=== PATIENT | female | born 1975 | race Two or more races ===

== ENCOUNTER 2024-08-30 22:04 | Emergency (ER) | payer MEDICAID, SELFPAY ==
[2024-08-30 22:21] VITALS: BP 123/83; PULSE 97; RESP 20; TEMP 37; O2SAT 98
--- NOTE | 2024-08-30 22:28 | PD.EDNV ---
Nausea/Vomit./Diarrhea-RME/HPI General Chief complaint: Nausea/Vomiting/Diarrhea Stated complaint: NAUSEA AND DIARRHEA Time Seen by Provider: 08/30/24 22:27 Arrival date/time: 08/30/24 22:04 RME / HPI RME / HPI Narrative: This section includes all my notes and documentations, including HPI, PE, and ED course. Ramesh Morales MD HPI: 49 y/o female with Hx of Type II DM presents with vomiting and diarrhea x approximately 12 hours. Patient also endorses loss of appetite. Denies any fever and abdominal pain. No other complaints. ROS: All negative except as documented in HPI. Physical Exam: General: Alert and oriented. Appearance of malaise noted. Eyes: Conjunctivae and lids clear. ENT: No nasal congestion. Neck: Supple. Heart: RRR. Lungs: No respiratory distress. Good air movement. No rhonchi, wheezing, rales. Abdomen: Soft and nontender. Normal bowel sounds. No distension. No rebound or guarding. Back: No CVA tenderness. Skin: Warm and dry. Neuro: Alert and oriented X 3. I reviewed all diagnostic test results: My review of the Abdomen/Pelvis CT report is: Enteritis. Blood tests unremarkable. UTI showed positive leukocyte esterase and 7 RBC and 25 WBC and 2 epithelial cells. Covid/Influenza: Negative. At this point, diagnoses include: UTI, Gastroenteritis. Treatment here included: IVF, Zofran 4 mg, Rocephin 1 G. Significant improvement noted. Recommended outpatient care. Based on my best medical judgment, made decision no further evaluation or treatment indicated at this time. Patient understands and agrees to the discharge instructions customized and printed, see below. Discharge Instructions from Dr. Morales: 1. After evaluation, you have stomach flu.? See attached handout on gastroenteritis. 2. This is caused by virus germs.? And we do not have good medications to kill the virus germs.? But your immune system will fight it off. 3. Your job is to stay hydrated.? Zofran for nausea/vomiting.? Increase oral fluid and maintain clear urine.? If dark or yellow, increase oral fluid. 4. Do not take any medications to stop your diarrhea.? But try to replenish the fluid and electrolytes you are losing. 5. Some good choices are water (but not only water because it will cause electrolyte abnormalities), sports drinks like Gatorade (with less sugar content), coconut water, chicken stock, and other fluid with electrolytes (like Pedialyte). 6. Take cefdinir to kill the germs causing your urinary tract infection. 7. See a private doctor on 09/03/2024 for recheck and further care. Ask to review all test results and official radiology reports, to make sure you receive all necessary follow-ups and monitoring, including urine culture results from today. Ask for help until you are completely better. 8. Seek immediate medical care with worsening or with any concerns. Ramesh Morales MD Related Data Previous Rx's ?Medication ?Instructions ?Recorded cephalexin 500 mg capsule 500 mg PO BID #3 caps 09/07/23 cefdinir 300 mg capsule 300 mg PO BID #14 caps 08/31/24 ondansetron 4 mg disintegrating 4 mg PO TID PRN nausea and 08/31/24 tablet vomiting 30 days #10 tabs Allergies Allergy/AdvReac Type Severity Reaction Status Date / Time No Known Allergies Allergy Verified 10/11/23 22:59 Review of Systems Review of Systems Systems Reviewed: All systems reviewed, normal except as documented Past Medical History Past Medical History CARDIAC: Positive Hypercholesterolemia ENDOCRINE: Positive Diabetes Mellitus Type 2 ED Exam Narrative Physical exam: Refer to [facility] Course Quality Measures none Orders Category Date Time Status Bedside COVID-19 Antigen Test NOW Care 08/30/24 22:28 Completed Bedside Influenza A&B Antigen Test NOW Care 08/30/24 22:28 Completed Saline [Insert IV] NOW Care 08/30/24 22:[address] abdomen pelvis wo con Stat Exams 08/30/24 22:29 Completed Bilirubin,Direct Stat Lab 08/30/24 22:44 Completed CBC Stat Lab 08/30/24 22:44 Completed CMP [Comprehensive Metabolic Panel] Stat Lab 08/30/24 22:44 Completed HCG,Qualitative Serum Stat Lab 08/30/24 22:44 Completed Lipase Stat Lab 08/30/24 22:44 Completed Magnesium Stat Lab 08/30/24 22:44 Completed UA, C/S IF [Urinalysis, C/S if Indicated] Stat Lab 08/30/24 22:44 Completed Urine Culture Stat Lab 08/30/24 22:44 Received Ketorolac Inj [Toradol Inj] Med 08/30/24 22:28 Discontinued 30 mg IVP X1 ONE Ondansetron Inj [Zofran Inj] Med 08/30/24 22:28 Discontinued 4 mg IVP X1 ONE Sodium Chloride 0.9% 1000 ml [Ns] 1,000 ml Med 08/30/24 22:28 Discontinued IV 999 mls/hr Sodium Chloride 0.9% 1000 ml [Ns] 1,000 ml Med 08/31/24 00:01 Discontinued IV 999 mls/hr cefTRIAXone/D5w 1gm IV premix [Rocephin/D5w 1gm IV Med 08/30/24 23:49 Discontinued premix] 1 gm in 50 ml IV X1 Vital Signs Vital signs: Vital Signs Temperature 98.6 F 08/30/24 22:21 Pulse Rate 97 08/30/24 22:21 Respiratory Rate 20 08/30/24 22:21 Blood Pressure 123/83 08/30/24 22:21 Pulse Oximetry (%) 98 08/30/24 22:21 Oxygen Delivery Method Room Air 08/30/24 22:21 Nausea/Vomiting/Diarrhea MDM Narrative MDM Narrative:: Scribe Attestation: IJaclyn, am scribing for and in the presence of Dr. Morales. Provider Notation: Although this document has been carefully reviewed, there may still be some phonetic and other typographical errors.? These errors are purely grammatical due to imperfections in the software program and should not be construed in any way to? compromise the substance of the patient's medical care during this visit. 49 y/o female with Hx of Type II DM presents with vomiting and diarrhea x approximately 12 hours. Patient also endorses loss of appetite. Denies any fever and abdominal pain. No other complaints. Patient data External records reviewed:: [facility] previous records (Reviewed prior ED records from 10/12/23. Patient was seen for Anxiety.) Clinical information provided by:: patient Social determinants that could affect healthcare access:: none Patient has the following chronic illnesses:: Type II DM, Hypercholesterolemia How is presenting disease/condition affected by chronic disease/condition?: exacerbated by Evaluation data The following diagnostics were reviewed and interpreted by me:: lab results and radiology exam(s) Lab and/or radiology exams considered but not ordered:: None Interpretation Summary: I reviewed all diagnostic test results: My review of the Abdomen/Pelvis CT report is: Enteritis. Blood tests unremarkable. UTI showed positive leukocyte esterase and 7 RBC and 25 WBC and 2 epithelial cells. Covid/Influenza: Negative. Medications / Prescriptions Medications / Prescriptions considered but not ordered:: None Medication administrations:: Medication Administration History Discontinued Medications Sodium Chloride (Ns) 1,000 mls @ 999 mls/hr IV .Q1H1M ONE Stop: 08/30/24 23:28 Last Infusion: 08/30/24 23:45 Dose: Infused Documented By: Admin: 08/30/24 22:41 Dose: 999 mls/hr Documented By: Ceftriaxone Sodium/Dextrose (Rocephin/D5w 1gm Iv Premix) 1 gm in 50 mls @ 100 mls/hr IV X1 ONE Stop: 08/31/24 00:18 Last Infusion: 08/31/24 01:13 Dose: Infused Documented By: Admin: 08/31/24 00:43 Dose: 100 mls/hr Documented By: Sodium Chloride (Ns) 1,000 mls @ 999 mls/hr IV .Q1H1M ONE Stop: 08/31/24 01:01 Last Infusion: 08/31/24 02:00 Dose: Infused Documented By: Admin: 08/31/24 00:43 Dose: 999 mls/hr Documented By: Ketorolac Tromethamine (Ketorolac Inj 30 Mg/Ml Vial) 30 mg IVP X1 ONE Stop: 08/30/24 22:29 Last Admin: 08/30/24 23:41 Dose: Not Given Documented By: Non-Admin Reason: Patient Refused Ondansetron HCl (Ondansetron Inj 2 Mg/Ml Inj 2 Ml) 4 mg IVP X1 ONE; Protocol Stop: 08/30/24 22:29 Last Admin: 08/30/24 22:45 Dose: 4 mg Documented By: IVF, Zofran 4 mg, Rocephin/D5w 1 G. Consultations Consultation(s) initiated? (list below): No Diagnosis Nausea Differential Diagnosis: food poisoning, gastroenteritis, drug-induced nausea and vomiting and dehydration Most likely diagnosis given after review of the tests above:: UTI, Gastroenteritis Admission Indicated Admission indicated?: not indicated Explain why admission is indicated or not indicated:: With significant improvement and no condition needing emergent intervention, there was no indication for admission. Admission Request Was there a request for admission?: No Disposition Plan Disposition Plan: Discharge Discharge Attestation Discharge Attestation: The patient and all family members were given an opportunity to ask questions and understood the discharge instructions. Discharge instructions specifically effects, indications for sooner follow up or return to the emergency department, and the expected course of current diagnosis. Patient condition: Stable Discharge Plan Plan Patient Disposition: HOME (Self Care) Prescriptions/Referrals Prescriptions/Med Rec: New ondansetron 4 mg tablet,disintegrating 4 mg PO TID PRN (Reason: nausea and vomiting) 30 Days Qty: 10 0RF cefdinir 300 mg capsule 300 mg PO BID Qty: 14 0RF No Action cephalexin 500 mg capsule 500 mg PO BID Qty: 3 0RF Referrals: Gonzalez Swift MD [Primary Care Provider] - In 1 week Problem List Clinical Impression: Gastroenteritis, UTI (urinary tract infection) Patient/Caregiver Discharge Instructions Discharge Activity: activity as tolerated Education Materials: ED CYSTITIS Female Adult, ED Gastroenteritis, Viral (Adult) Additional Instructions: Discharge Instructions from Dr. Morales: 1. After evaluation, you have stomach flu.? See attached handout on gastroenteritis. 2. This is caused by virus germs.? And we do not have good medications to kill the virus germs.? But your immune system will fight it off. 3. Your job is to stay hydrated.? Zofran for nausea/vomiting.? Increase oral fluid and maintain clear urine.? If dark or yellow, increase oral fluid. 4. Do not take any medications to stop your diarrhea.? But try to replenish the fluid and electrolytes you are losing. 5. Some good choices are water (but not only water because it will cause electrolyte abnormalities), sports drinks like Gatorade (with less sugar content), coconut water, chicken stock, and other fluid with electrolytes (like Pedialyte). 6. Take cefdinir to kill the germs causing your urinary tract infection. 7. See a private doctor on 09/03/2024 for recheck and further care. Ask to review all test results and official radiology reports, to make sure you receive all necessary follow-ups and monitoring, including urine culture results from today. Ask for help until you are completely better. 8. Seek immediate medical care with worsening or with any concerns. Instrucciones de ely del Dr. Morales: 1. Despu?s de la evaluaci?n, tiene gastroenteritis. Consulte el folleto adjunto sobre gastroenteritis. 2. Esta es causada por virus. No contamos con medicamentos eficaces para eliminarlos, pedro luis bustos sistema inmunitario la combatir?. 3. Bustos deber es mantenerse hidratado. Zofran para las n?useas y los v?mitos. Aumente la ingesta de l?quidos y mantenga la orina cosme. Si es oscura o amarilla, aumente la ingesta de l?quidos. 4. No tome alyx?n medicamento para detener la diarrea. Intente reponer los l?quidos y electrolitos que est? perdiendo. 5. Algunas buenas opciones son el agua (pedro luis no solo agua, ya que puede causar anomal?as electrol?iris), las bebidas deportivas tarah Gatorade (con menos az?car), el agua de millicent, el caldo de al y otros l?quidos con electrolitos (tarah Pedialyte). 6. Leedey cefdinir para eliminar los g?rmenes que causan la infecci?n del tracto urinario. 7. Consulte con un m?dico particular el 03/09/2024 para leticia nueva revisi?n y atenci?n adicional. Solicite la revisi?n de todos los resultados de las pruebas y los informes radiol?gicos oficiales para asegurarse de recibir todos los seguimientos y monitoreo necesarios, incluyendo los resultados del urocultivo de hoy. Solicite ayuda hasta que se recupere por completo. 8. Busque atenci?n m?dica inmediata si bustos condici?n empeora o tiene alguna inquietud. Print Language: [place] Stand Alone Forms: Trisha Award Info., Patient Portal Info Letter
[2024-08-30 22:29] VITALS: BP 123/85; PULSE 98; RESP 18; TEMP 37.3; O2SAT 97
--- NOTE | 2024-08-30 22:29 | XR_ITS ---
Examination: CT abdomen and pelvis without contrast. Coronal 3-D reconstructions. Sagittal 2-D reconstructions. Date and time of exam:August 31, 2024 0019 hours INDICATIONS: Abdominal pain vomiting and diarrhea today CTDI: vol (mGy): 7.39. DLP: (mGycm): 423. Technique: Axial images of the abdomen have been obtained, 3 mm slice thickness Intravenous contrast material has not been administered. Low dose protocols were performed. One or more of the following dose reduction techniques were used; automated exposure control, adjustment of the mA and/or KV according to patient size, use of iterative reconstruction technique. Findings: No focal liver or splenic lesions No gallstones No pancreatic mass. No renal or ureteral calculi, no hydronephrosis Aorta normal size Mildly fluid distended small bowel and colonic loops No obstruction Normal appendix No pelvic mass Urinary bladder is intact The osseous structures are intact IMPRESSION: Mild colonic and small bowel ileus versus mild enterocolitis
[2024-08-30] MEDS: SODIUM CHLORIDE 0.9% 1000 ML 1,000 ML 999 ML IV (22:41)
[2024-08-30] MEDS: ONDANSETRON INJ 2 MG/ML INJ 2 ML 4 MG IVP (22:45)
[2024-08-30 22:56] LABS: Collection Type, Urine Clean Catch
[2024-08-30 23:05] LABS: Basophils # (Auto) 0.1 Thou/mm3 (0.0-0.2); Basophils % (Auto) 1 % (0-2.5); Eosinophils # (Auto) 0.1 Thou/mm3 (0.0-0.5); Eosinophils % (Auto) 0 % (0-10); Hematocrit 44.4 % (36.0-46.0); Hemoglobin 14.5 g/dL (12.0-16.0); Immature Granulocytes Auto 0.05 Thou/mm3 (0.00-0.00); Lymphocytes # (Auto) 1.7 Thou/mm3 (1.0-4.8); Lymphocytes % (Auto) 15 % (10-50); Mean Corpuscular HGB Conc 32.7 g/dl (31.0-37.0); Mean Corpuscular Hemoglobin 26.8 pg (25.0-35.0); Mean Corpuscular Volume 82 fL (80-100); Monocytes # (Auto) 0.5 Thou/mm3 (0.0-0.8); Monocytes % (Auto) 4 % (0-12); Neutrophils # (Auto) 9.2 Thou/mm3 (1.8-7.7); Neutrophils % (Auto) 80 % (37-80); Nucleated Red Blood Cell # 0.00 Thou/mm3 (0.00-0.00); Nucleated Red Blood Cell % 0 /100 WBC (0); Platelet Count 284 Thou/mm3 (140-440); RDW Standard Deviation 39.8 fL (36.4-46.3); Red Blood Count 5.41 Miln/mm3 (4.00-5.20); White Blood Count 11.6 Thou/mm3 (3.6-11.0)
[2024-08-30 23:34] LABS: Amorphous Crystals,Urine Present (Absent); Bilirubin,Urine Negative (Negative); Blood,Urine Negative (Negative); Clarity,Urine Clear (Clear/Hazy); Color,Urine Lt-Yellow (Lt Yel-Yel); Glucose, Urine 4+ (Negative); Ketones,Urine 2+ (Negative); Leukocyte Esterase,Urine Positive (Negative); Nitrite,Urine Negative (Negative); PH,Urine 6.0 (5.0-7.0); Protein,Urine Trace (Neg - Trace); RBC,Urine 7 /hpf (0-3); Specific Gravity,Urine 1.046 (1.001-1.035); Squamous Epithelial Cell,Urine 2 /hpf (0-5); Urobilinogen,Urine Negative mg/dL (0.0-1.0); WBC,Urine 25 /hpf (0-5)
[2024-08-30 23:35] LABS: Culture Indicated,Urine Yes
[2024-08-30 23:54] LABS: HCG,Qualitative Serum Negative
[2024-08-30 23:57] LABS: Alanine Aminotransferase 14 U/L (10-49); Albumin, Serum 5.2 gm/dL (3.5-5.0); Albumin/Globulin Ratio 1.4 (1.2-2.2); Alkaline Phosphatase 131 U/L (46-116); Anion Gap 14 (7-16); Aspartate Amino Transferase 18 U/L (0-34); BUN/Creatinine Ratio 24 Ratio (12-20); Bilirubin,Direct 0.1 mg/dL (0.0-0.3); Bilirubin,Total 0.7 mg/dL (0.3-1.2); Blood Urea Nitrogen 19 mg/dL (9-23); Calcium 10.2 mg/dL (8.3-10.6); Calcium (Corrected) 10.2 mg/dL (8.5-10.1); Carbon Dioxide 22.6 mMol/L (20.0-31.0); Chloride 106 mMol/L (98-107); Creatinine (Component) 0.8 mg/dL (0.6-1.3); Globulin 3.7 gm/dL (2.3-3.5); Glucose 197 mg/dL (74-106); Lipase 35 U/L (12-53); Magnesium 1.9 mg/dL (1.6-2.6); Osmolality,Calculated 292 (275-295); Potassium 3.7 mMol/L (3.4-5.1); Sodium 143 mMol/L (136-145); Total Protein 8.9 gm/dL (5.7-8.2); eGFR > 60 See Note
[2024-08-31 00:31] VITALS: BP 122/81; PULSE 96; RESP 18; TEMP 37.2; O2SAT 97
[2024-08-31] MEDS: SODIUM CHLORIDE 0.9% 1000 ML 1,000 ML 999 ML IV (00:43)
[2024-08-31] MEDS: cefTRIAXone/D5w 1gm IV premix 1 GM/50 ML BAG IV (00:43)
--- NOTE | 2024-08-31 01:31 | PRELIM_ITS ---
CT scan of the abdomen and pelvis without intravenous contrast (axial sections with sagittal and coronal reformats) August 31, 2024 0019 hours Clinical History: ABD PAIN VOMITING DIARRHEA No prior study is available for comparison. Findings: Bibasilar streaky atelectasis is present. The liver, gallbladder, pancreas, spleen, kidneys and adrenals are unremarkable on this noncontrast study. No evidence of bowel dilatation. Fluid-filled small and large bowel loops with air-fluid levels are seen in the colon. The appendix is within normal limits. The urinary bladder is unremarkable. There is no free fluid or free air.There is no adenopathy. A small fat-containing umbilical hernia is present. Mild degenerative changes are identified in the spine. Impression: Fluid-filled small and large bowel loops with air-fluid levels in the colon, nonspecific. However, in the appropriate clinical setting the possibility of enterocolitis cannot be excluded. Report Electronically Signed By: Steve Roman 08/31/2024 1:29:00 AM [EST]
== END 2024-08-31 02:12 | disposition home or self-care (01) ==
PROVIDERS: Emergency Provider Emergency Medicine; PCP Family Medicine
DX: K52.9 Noninfective gastroenteritis and colitis, unspecified (principal); N39.0 Urinary tract infection, site not specified
CPT/HCPCS: 36415; 74176; 80053; 81001; 82248; 83690; 83735; 84703; 85025; 87086; 87400; 87811; 96361; 96365; 96375; 99284; J0696; J2405; J7030